=== PATIENT | female | born 1985 | race Caucasian/White ===

== ENCOUNTER 2020-06-07 12:10 | Emergency (ER) | payer MEDICAID ==
[~2020-06-07] VITALS: Ht 170.2 cm; Wt 68.0 kg
[2020-06-07 12:48] LABS: HEMATOCRIT 34.8 % (36.0-48.0); MEAN CORPUSCULAR HEMOGLOBIN 31.3 pg (28.0-32.0); MEAN CORPUSCULAR VOLUME 90.8 fL (81.0-99.0); PLATELET 295 x1000/uL (130-400); RED BLOOD CELL COUNT 3.83 mill/uL (4.2-5.4); RED CELL DISTRIBUTION WIDTH 12.6 % (11.6-14.6)
[2020-06-07 13:56] VITALS: BP 109/66
== END 2020-06-07 15:10 | disposition home or self-care (01) ==
LOC: ER 12:27
DX: R55 Syncope and collapse (principal); R42 Dizziness and giddiness; R53.1 Weakness; J45.909 Unspecified asthma, uncomplicated
CPT/HCPCS: 36415; 85027; 93005; 99283